=== PATIENT | male | born 1950 | race American Indian/Alaskan Native ===

== ENCOUNTER 2022-02-20 11:22 | Outpatient (CLI) | payer MEDICARE ==
[2022-02-20 12:26] LABS: Basophils % (Auto) 0.3 % (0.0-1.8); Eosinophils # (Auto) 0.1 K/mm3 (0.0-0.4); Eosinophils % (Auto) 1.1 % (0.0-4.3); Hematocrit 48.4 % (35.5-45.6); Hemoglobin 15.8 gm/dl (11.8-15.2); Lymphocytes # (Auto) 0.3 K/mm3 (1.2-5.4); Lymphocytes % (Auto) 5.8 % (13.4-35.0); Mean Corpuscular HGB Conc 33 % (32-34); Mean Corpuscular Volume 89 fl (84-94); Monocytes # (Auto) 0.5 K/mm3 (0.0-0.8); Monocytes % (Auto) 9.8 % (0.0-7.3); Red Blood Count 5.45 M/mm3 (3.65-5.03); Red Cell Distribution Width 15.6 % (13.2-15.2)
[2022-02-20 12:48] LABS: Platelet Count 88 K/mm3 (140-440)
[2022-02-20 12:51] LABS: Creatinine,Urine 99.3 mg/dL (0.1-20.0)
[2022-02-20 13:04] LABS: Albumin 4.5 g/dL (3.9-5)
== END 2022-02-20 11:23 | disposition home or self-care (01) ==
LOC: LAB 11:22
PROVIDERS: ATTEND Internal Medicine
DX: I12.9 Hypertensive chronic kidney disease with stage 1 through stage 4 chronic kidney disease, or unspecified chronic kidney disease (principal); N18.32 Chronic kidney disease, stage 3b; D68.9 Coagulation defect, unspecified; E55.9 Vitamin D deficiency, unspecified; R60.0 Localized edema; D68.0 Von Willebrand disease; Z71.3 Dietary counseling and surveillance
CPT/HCPCS: 36415; 80053; 82164; 82570; 84156; 85025